=== PATIENT | female | born 1970 | race Hispanic/Latino ===

== ENCOUNTER 2023-06-26 14:16 | Emergency (ER) | payer OTHER ==
[~2023-06-26] VITALS: Ht 170.2 cm; Wt 118.8 kg
[2023-06-26] MEDS ORDERED: ACET-2893 PO (16:47)
[2023-06-26] MEDS ORDERED: ACETAMINOPHEN 500 MG TABLET ONE (19:33)
[2023-06-26 19:36] VITALS: BP 117/71; PULSE 83; RESP 18; O2SAT 96
[2023-06-26] MEDS: ACETAMINOPHEN 500 MG TABLET PO ONE (19:36)
== END 2023-06-26 19:43 | disposition home or self-care (01) ==
LOC: EDH 14:16
DX: S80.01XA Contusion of right knee, initial encounter (principal); S80.02XA Contusion of left knee, initial encounter; S50.02XA Contusion of left elbow, initial encounter; E11.9 Type 2 diabetes mellitus without complications; Z90.49 Acquired absence of other specified parts of digestive tract; Z98.890 Other specified postprocedural states; W18.39XA Other fall on same level, initial encounter; Y93.89 Activity, other specified; Y92.89 Other specified places as the place of occurrence of the external cause; Y99.8 Other external cause status
CPT/HCPCS: 73070; 73562